=== PATIENT | female | born 1975 | race African-American/Black ===

== ENCOUNTER 2021-10-05 18:53 | Emergency (ER) | payer MEDICAID ==
[~2021-10-05] VITALS: Ht 170.2 cm; Wt 82.0 kg
[2021-10-05 18:55] VITALS: BP 142/82
== END 2021-10-05 22:39 | disposition left against medical advice (07) ==
LOC: ER 18:53
DX: Z53.21 Procedure and treatment not carried out due to patient leaving prior to being seen by health care provider (principal)
CPT/HCPCS: 93005

== ENCOUNTER 2021-10-07 19:42 | Emergency (ER) | payer MEDICAID ==
[~2021-10-07] VITALS: Ht 170.2 cm; Wt 83.1 kg
[2021-10-07] MEDS ORDERED: IBUPROFEN 600MG TABLET PO STA (20:01)
[2021-10-07 20:22] LABS: BASOPHILS % 0.9 % (0.0-2.0); EOSINOPHILS % 2.5 % (0.0-5.0); HEMATOCRIT. 36.4 % (36.0-48.0); HEMOGLOBIN. 11.7 g/dL (12.0-16.0); MEAN CORPUSCULAR HEMOGLOBIN 25.6 pg (28.0-32.0); MEAN CORPUSCULAR VOLUME 79.9 fL (81.0-99.0); MEAN PLATELET VOLUME 10.5 fl (7.4-10.4); MONOCYTES % 7.1 % (2.0-8.0); NEUTROPHILS % 58.5 % (40.0-76.0); PLATELET 148 x1000/uL (130-400); RED BLOOD CELL COUNT 4.55 mill/uL (4.2-5.4); RED CELL DISTRIBUTION WIDTH 18.2 % (11.6-14.6)
[2021-10-07 20:25] LABS: CHLORIDE 106 mEq/L (98-107)
[2021-10-07 20:39] LABS: HCG SCREEN NEGATIVE
[2021-10-07 21:57] LABS: CLARITY URINE CLEAR (CLEAR); COLOR URINE YELLOW (YELLOW); KETONES URINE TRACE (NEGATIVE); LEUKOCYTE ESTERASE URINE NEGATIVE (NEGATIVE); NITRITE URINE NEGATIVE (NEGATIVE); OCCULT BLOOD URINE NEGATIVE (NEGATIVE); PH URINE 6.5 (4.5-8.0); PROTEIN URINE NEGATIVE (NEGATIVE); SPECIFIC GRAVITY URINE 1.032 (1.005-1.030)
[2021-10-07 22:40] VITALS: BP 133/86
== END 2021-10-07 22:41 | disposition left against medical advice (07) ==
LOC: ER 19:42
DX: R07.9 Chest pain, unspecified (principal); R10.9 Unspecified abdominal pain; D50.9 Iron deficiency anemia, unspecified; M19.90 Unspecified osteoarthritis, unspecified site; J45.909 Unspecified asthma, uncomplicated; I10 Essential (primary) hypertension; Z87.01 Personal history of pneumonia (recurrent); Z87.440 Personal history of urinary (tract) infections; Z98.890 Other specified postprocedural states; Z91.018 Allergy to other foods
CPT/HCPCS: 36415; 71045; 80053; 81003; 84484; 84703; 85025; 93005; 99285

== ENCOUNTER 2022-01-13 09:45 | Emergency (ER) | payer MEDICAID, OTHER ==
[~2022-01-13] VITALS: Ht 167.6 cm; Wt 72.0 kg
[2022-01-13 09:47] VITALS: BP 109/82
[2022-01-13 10:26] LABS: CLARITY URINE CLEAR (CLEAR); COLOR URINE YELLOW (YELLOW); KETONES URINE 2+ (NEGATIVE); LEUKOCYTE ESTERASE URINE NEGATIVE (NEGATIVE); NITRITE URINE NEGATIVE (NEGATIVE); OCCULT BLOOD URINE NEGATIVE (NEGATIVE); PH URINE >=9.0 (4.5-8.0); PROTEIN URINE 2+ (NEGATIVE); SPECIFIC GRAVITY URINE 1.026 (1.005-1.030)
[2022-01-13] MEDS ORDERED: FAMOTIDINE 20MG/2ML VIAL IV STA (10:33)
[2022-01-13] MEDS ORDERED: VISCOUS LIDOCAINE 2% 15 ML UDC PO STA (10:33)
[2022-01-13] MEDS ORDERED: ONDANSETRON HCL 4MG/2ML INJ IV STA (10:33)
[2022-01-13] MEDS ORDERED: MAGNESIUM/ALUMINUM HYDROXIDE/SIMETHICONE 30ML UDC PO STA (10:33)
[2022-01-13] MEDS: LACTATED RINGERS 1,000 ML IV SCH ×2 (10:44→11:53)
[2022-01-13 11:04] LABS: HEMOGLOBIN. 14.5 g/dL (12.0-16.0); MEAN CORPUSCULAR HEMOGLOBIN 26.6 pg (28.0-32.0); MEAN CORPUSCULAR VOLUME 80.8 fL (81.0-99.0); MEAN PLATELET VOLUME 11.5 fl (7.4-10.4); PLATELET 163 x1000/uL (130-400); RED BLOOD CELL COUNT 5.45 mill/uL (4.2-5.4); RED CELL DISTRIBUTION WIDTH 20.4 % (11.6-14.6)
[2022-01-13 11:10] LABS: CHLORIDE 102 mEq/L (98-107)
[2022-01-13 11:14] LABS: HCG SCREEN NEGATIVE
[2022-01-13] MEDS ORDERED: FAMO20TA8 MT (11:56)
[2022-01-13] MEDS ORDERED: MAG355OR20 PO (11:56)
[2022-01-13] MEDS ORDERED: ONDA4TAB50 MT (11:56)
[2022-01-13] MEDS ORDERED: POTASSIUM CHLORIDE 20MEQ TABLET SR PO NR (12:00)
[2022-01-13 12:05] LABS: PLATELET ESTIMATE NORMAL
== END 2022-01-13 12:43 | disposition home or self-care (01) ==
LOC: ER 09:45
DX: K29.20 Alcoholic gastritis without bleeding (principal); J45.909 Unspecified asthma, uncomplicated; E78.00 Pure hypercholesterolemia, unspecified; I10 Essential (primary) hypertension; Z91.018 Allergy to other foods
CPT/HCPCS: 36415; 80053; 81003; 83690; 83735; 84703; 85025; 96361; 96374; 96375; 99284; J2405; J3490; J7120